=== PATIENT | female | born 1985 | race African-American/Black ===

== ENCOUNTER 2016-11-14 19:15 | Emergency (ER) | payer SELFPAY ==
[2016-11-14] MEDS ORDERED: diphenhydrAMINE HCl 50 MG/ML 1 ML VIAL ONE (20:08)
[2016-11-14] MEDS ORDERED: Metoclopramide HCl 10 MG/2 ML VIAL ONE (20:09)
[2016-11-14] MEDS ORDERED: Ketorolac Tromethamine 30 MG/ML VIAL ONE (20:09)
[2016-11-14] MEDS ORDERED: Ondansetron HCl/PF 4 MG/2 ML Vial ONE (20:10)
[2016-11-14] MEDS ORDERED: Aspirin 325 MG TAB ONE (20:10)
[2016-11-14 20:12] LABS: #Basophils 0.1 thou/uL (0.0-0.2); #Lymphocytes 1.8 thou/uL (1.20-3.40); #Monocytes 0.7 thou/uL (0.11-0.59); #Neutrophils 2.6 thou/uL (1.40-6.50); %Basophils 1.3 % (0.0-1.0); %Eosinophils 0.4 % (0.0-10.0); %Lymphocytes 34.9 % (21.0-51.0); %Monocytes 13.2 % (0.0-10.0); %Neutrophils 50.3 % (42.0-75.0); Hemoglobin 12.6 g/dL (12.0-16.0); Mean Corpuscular HGB CONC 33.9 g/dL (32.0-36.0); Mean Corpuscular Hemoglobin 29.7 pg (27.0-31.0); Mean Corpuscular Volume 87.6 fl (81.0-99.0); Mean Platelet Volume 9.7 fL (7.4-10.4); Platelet Count 206 thou/uL (130-400); Red Blood Cell (RBC) Count 4.23 mill/uL (4.20-5.40); White Blood Cell (WBC) Count 5.2 thou/uL (4.8-10.8)
[2016-11-14 20:13] LABS: INR-International Normal Ratio 1.1; Prothrombin Time 14.8 SEC (12.0-14.7)
[2016-11-14 20:26] LABS: ALT (SGPT) 12 U/L (8-55); AST (SGOT) 21 U/L (5-34); Albumin 4.1 g/dL (3.5-5.0); Alkaline Phosphatase 77 U/L (40-150); Anion Gap 12 mmol/L (10-20); BUN (Urea Nitrogen) 11 mg/dL (7.0-18.7); Bilirubin, Total 0.4 mg/dL (0.2-1.2); CK (CPK) 145 U/L (29-168); Calc. Creatinine Clearance 0 mL/min (70-130); Calcium 9.6 mg/dL (7.8-10.44); Carbon Dioxide 23 mmol/L (22-29); Chloride 109 mmol/L (98-107); Estimated GFR-MDRD Greater than 90; Globulin 3.5 g/dL (2.4-3.5); Glucose 77 mg/dL (70-105); Magnesium 2.2 mg/dL (1.6-2.6); Potassium 3.9 mmol/L (3.5-5.1); Protein, Total 7.6 g/dL (6.0-8.3); Sodium 140 mmol/L (136-145)
[2016-11-14 20:27] LABS: Troponin I Less than 0.010 ng/mL (< 0.028)
--- NOTE | 2016-11-14 20:28 | RAD ---
RADIOGRAPH CHEST 1 VIEW: HISTORY: 31-year-old female with acute chest pain. FINDINGS: The visualized lung jaramillo are clear. The cardiomediastinal silhouette and hilar shadows are normal . The lateral costophrenic angles are sharp. The osseous structures appear normal. There is no pn eumothorax. IMPRESSION: Negative. [email or web address] POS: [facility]
== END 2016-11-14 21:45 | disposition home or self-care (01) ==
LOC: MADERS 19:15
DX: G43.909 Migraine, unspecified, not intractable, without status migrainosus (principal); R07.9 Chest pain, unspecified; F17.210 Nicotine dependence, cigarettes, uncomplicated; Z79.899 Other long term (current) drug therapy
CPT/HCPCS: 71010; 80053; 82550; 82553; 83735; 83880; 84484; 85025; 85610; 85730; 93005; 94760; 96374; 96375; J1200; J1885; J2405; J2765

== ENCOUNTER 2018-11-01 15:01 | Emergency (ER) | payer SELFPAY ==
[2018-11-01] MEDS ORDERED: Sodium Chloride 0.9% 1,000 ML ONE (15:26)
[2018-11-01] MEDS ORDERED: Ondansetron PF 4 MG/2 ML Vial ONE (15:26)
[2018-11-01 15:40] LABS: Bilirubin Negative (Negative); Blood, Urine Trace (Negative); Clarity Cloudy (Clear); Glucose, Urine (Dipstick) Negative (Negative); Leukocyte Negative (Negative); Nitrite Negative (Negative); Protein, Urine (Dipstick) Trace mg/dL (Neg-Trace); Urobilinogen 0.2 mg/dL (0.2-1.0); pH, Urine 5.5 (5.0-9.0)
[2018-11-01] MEDS ORDERED: Ketorolac Tromethamine 30 MG/ML VIAL ONE (15:41)
[2018-11-01 15:43] LABS: Pregnancy Test - Urine (BHCG) Negative (Negative); Pregu Control Background? CLEAR/WHITE (CLR/WHITE); Pregu Control Bar Appear? YES (CONTROL BAR); Specific Gravity 1.028 (1.002-1.036)
[2018-11-01 15:44] LABS: ALT (SGPT) 15 U/L (8-55); AST (SGOT) 18 U/L (5-34); Albumin 4.2 g/dL (3.5-5.0); Alkaline Phosphatase 86 U/L (40-150); Anion Gap 10 mmol/L (10-20); BUN (Urea Nitrogen) 10 mg/dL (7.0-18.7); Bilirubin, Total 0.2 mg/dL (0.2-1.2); Calc. Creatinine Clearance 0 mL/min (70-130); Calcium 9.5 mg/dL (7.8-10.44); Carbon Dioxide 24 mmol/L (22-29); Chloride 110 mmol/L (98-107); Estimated GFR-MDRD Greater than 90; Globulin 4.1 g/dL (2.4-3.5); Glucose 97 mg/dL (70-105); Lipase 16 U/L (8-78); Potassium 3.5 mmol/L (3.5-5.1); Protein, Total 8.3 g/dL (6.0-8.3); Sodium 140 mmol/L (136-145); Specific Gravity, Urine 1.028 (1.002-1.036)
[2018-11-01 15:53] LABS: Bacteria/HPF 4+ HPF (None Seen); RBC/HPF 0-3 HPF (0-3)
[2018-11-01 16:01] LABS: Band 3 % (5-11); Eosinophils 5 % (0-10); Hemoglobin 12.3 g/dL (12.0-16.0); Lymphocytes 23 % (21-51); MDiff Complete? YES; Mean Corpuscular HGB CONC 31.2 g/dL (32.0-36.0); Mean Corpuscular Hemoglobin 26.7 pg (27.0-31.0); Mean Corpuscular Volume 85.7 fL (78.0-98.0); Mean Platelet Volume 8.6 fL (7.4-10.4); Monocytes 8 % (0-10); Neutrophil 61 % (42-75); Platelet Count 206 thou/uL (130-400); Platelet Morphology Comment Appears Adequate; RBC Distribution Width 13.6 % (11.5-14.5); White Blood Cell (WBC) Count 4.8 thou/uL (4.8-10.8)
== END 2018-11-01 17:16 | disposition home or self-care (01) ==
LOC: MADERS 15:01
DX: K52.9 Noninfective gastroenteritis and colitis, unspecified (principal); R07.89 Other chest pain; F17.210 Nicotine dependence, cigarettes, uncomplicated
CPT/HCPCS: 80053; 81003; 81015; 81025; 83690; 84484; 85025; 93005; 96361; 96374; 96375; J1885; J2405; J7050

== ENCOUNTER 2019-09-18 10:22 | Emergency (ER) | payer SELFPAY ==
--- NOTE | 2019-09-18 10:59 | RAD ---
CHEST 2 VIEWS: Date: 09/18/2019 HISTORY: Cough. COMPARISON: Radiograph dated 11/14/2016. FINDINGS: Lungs are relatively clear. No pneumothorax. No effusion. Cardiac silhouette and mediastinal contours are within normal limits. No acute osseous abnormality. IMPRESSION: No acute intrathoracic abnormality. POS: [facility]
[2019-09-18] MEDS ORDERED: Azithromycin 250 MG TAB ONE ×2 (11:04→11:05)
== END 2019-09-18 11:10 | disposition home or self-care (01) ==
LOC: MADERS 10:22
DX: J15.9 Unspecified bacterial pneumonia (principal); J02.9 Acute pharyngitis, unspecified; F17.200 Nicotine dependence, unspecified, uncomplicated; Z71.6 Tobacco abuse counseling
CPT/HCPCS: 71046; 99406

== ENCOUNTER 2019-12-22 11:02 | Emergency (ER) | payer OTHER, SELFPAY ==
[2019-12-22] MEDS ORDERED: Ibuprofen 800 MG TAB ONE (11:39)
[2019-12-22] MEDS ORDERED: Clindamycin 150 MG CAP ONE (11:39)
== END 2019-12-22 11:45 | disposition home or self-care (01) ==
LOC: MADERS 11:02
DX: L02.412 Cutaneous abscess of left axilla (principal)
CPT/HCPCS: 99283

== ENCOUNTER 2020-07-12 09:26 | Emergency (ER) | payer SELFPAY ==
[2020-07-12] MEDS ORDERED: Ondansetron ODT 4 MG TAB ONE (10:13)
[2020-07-12] MEDS ORDERED: Loperamide HCl 2 MG CAP ONE (10:13)
== END 2020-07-12 10:23 | disposition home or self-care (01) ==
LOC: MADERS 09:26
DX: K52.9 Noninfective gastroenteritis and colitis, unspecified (principal); F17.210 Nicotine dependence, cigarettes, uncomplicated
CPT/HCPCS: 99283; Q0162

== ENCOUNTER 2021-06-16 11:22 | Emergency (ER) | payer SELFPAY ==
[2021-06-16] MEDS ORDERED: Ketorolac Tromethamine 30 MG/ML VIAL ONE (12:42)
[2021-06-16 20:59] LABS: SARS-CoV-2 PCR by NAA DETECTED (NotDetected)
== END 2021-06-16 13:05 | disposition home or self-care (01) ==
LOC: MADERS 11:22
DX: U07.1 COVID-19 (principal); F17.210 Nicotine dependence, cigarettes, uncomplicated
CPT/HCPCS: 96372; 99284; J1885; U0003; U0005

== ENCOUNTER 2021-06-25 12:54 | Emergency (ER) | payer SELFPAY ==
[2021-06-26 17:10] LABS: SARS-CoV-2 PCR by NAA Not Detected (NotDetected)
== END 2021-06-25 14:28 | disposition home or self-care (01) ==
LOC: MADERS 12:54
DX: U07.1 COVID-19 (principal); I10 Essential (primary) hypertension
CPT/HCPCS: 99283; U0003; U0005

== ENCOUNTER 2022-02-12 12:29 | Emergency (ER) | payer OTHER, SELFPAY ==
[2022-02-12] MEDS ORDERED: Ibuprofen 800 MG TAB ONE (13:15)
== END 2022-02-12 13:50 | disposition home or self-care (01) ==
LOC: MADERS 12:29
DX: S83.91XA Sprain of unspecified site of right knee, initial encounter (principal); F17.210 Nicotine dependence, cigarettes, uncomplicated; W19.XXXA Unspecified fall, initial encounter